=== PATIENT | female | born 1985 | race Two or more races ===

== ENCOUNTER 2019-10-28 11:41 | Inpatient (IN) | payer OTHER ==
[~2019-10-28] VITALS: Ht 157.5 cm; Wt 83.5 kg
[2019-11-15] MEDS ORDERED: PRENATAL CAPLE1 EAC1 PO (15:48)
[2019-11-15] MEDS ORDERED: FOLIC ACID20 MG PO (15:48)
[2019-11-15] MEDS ORDERED: PRILOSEC10 MG PO (15:48)
[2019-11-15] MEDS ORDERED: VITAMIN B-650 M1 PO (15:49)
[2019-11-15] MEDS ORDERED: PREVACID30 MG PO (16:34)
== END 2019-11-18 15:45 | DRG 788 ==
LOC: LDR 11-15 14:47 → O/R 11-16 17:17 → OB/GYN 11-16 17:33
PROVIDERS: ADMIT Obstetrics & Gynecology Maternal & Fetal Medicine
PROC: 10D00Z1 Extraction of Products of Conception, Low, Open Approach (ICD-10-PCS; principal; 2019-11-15)
PROC: 0UB90ZZ Excision of Uterus, Open Approach (ICD-10-PCS; 2019-11-15)
PROC: 4A1HXCZ Monitoring of Products of Conception, Cardiac Rate, External Approach (ICD-10-PCS; 2019-11-15)
PROC: 3E033VJ Introduction of Other Hormone into Peripheral Vein, Percutaneous Approach (ICD-10-PCS; 2019-11-15)
DX: O61.0 Failed medical induction of labor (principal); O33.8 Maternal care for disproportion of other origin; O34.13 Maternal care for benign tumor of corpus uteri, third trimester; D25.9 Leiomyoma of uterus, unspecified; Z22.330 Carrier of Group B streptococcus; Z3A.39 39 weeks gestation of pregnancy; Z37.0 Single live birth